=== PATIENT | female | born 1965 | race Caucasian/White ===

== ENCOUNTER → 2018-11-25 | Outpatient (CLI) | payer BC ==
[~2018-11-25] MED LIST: BUPR150ER PO; CYAN500 PO; DIPH50 PO; ERYT250; Estradiol1 MG PO; GLUCOSAMINE-CH1 EA18 PO; LEVSOD125 PO; LEVSOD137 PO; Melatonin5 M1 PO; Mirena1 EACH VG; Multiple Vitam1 EAC1 PO; NAPR220 PO; SERT100 PO; VITAMIN D32000 UNI1 PO; ZOLP5 PO
== END | disposition home or self-care (01) ==
LOC: LAB 16:00 → LAB SHORT 16:00
DX: N39.0 Urinary tract infection, site not specified (principal)
CPT/HCPCS: 87077; 87086; 87186

== ENCOUNTER 2018-11-26 12:52 | Emergency (ER) | payer BC ==
[~2018-11-26] VITALS: Ht 157.5 cm; Wt 81.2 kg
[2018-11-26 13:29] LABS: BASOPHILS ABSOLUTE AUTO 0.04 K/mm3 (0.00-0.23); BASOPHILS PERCENT AUTO 0 % (0-2); EOSINOPHILS ABSOLUTE AUTO 0.09 K/mm3 (0.00-0.68); EOSINOPHILS PERCENT AUTO 1 % (0-6); Hematocrit 35.1 % (33.0-51.0); Hemoglobin 11.7 g/dL (11.5-16.0); IMMATURE GRAN PERCENT AUTO 1 % (0-1); LYMPHOCYTES ABSOLUTE AUTO 1.01 K/mm3 (0.84-5.20); LYMPHOCYTES PERCENT AUTO 7 % (21-46); MONOCYTES ABSOLUTE AUTO 1.03 K/mm3 (0.16-1.47); MONOCYTES PERCENT AUTO 7 % (4-13); Mean Corpuscular HGB 28.6 pg (26.0-34.0); Mean Corpuscular HGB Conc 33.3 g/dL (31.5-36.5); Mean Corpuscular Volume 86 fL (80-100); Mean Platelet Volume 8.8 fL (9.1-12.4); NEUTROPHILS ABSOLUTE AUTO 12.22 K/mm3 (1.96-9.15); NEUTROPHILS PERCENT AUTO 84 % (41-73); Platelet Count 214 K/mm3 (150-400); RDW Standard Deviation 43.8 fL (35.1-46.3); Red Blood Cell Count 4.09 M/mm3 (3.80-5.20); White Blood Cell Count 14.49 K/mm3 (4.00-11.30)
[2018-11-26 13:30] LABS: Source, Urine Clean Catch
[2018-11-26 13:36] LABS: Bilirubin, Urine Neg (Neg); Blood, Urine 1+ (Neg); Color, Urine Yellow (P-Yellow); Glucose Qualitative, Urine Neg (Neg); Ketones, Urine Neg (Neg); Leukocyte Esterase, Urine 2+ (Neg); Nitrite, Urine Neg (Neg); Protein, Urine 1+ (Neg); Specific Gravity, Urine 1.005 (1.003-1.022); Urobilinogen, Urine NORM (Normal)
[2018-11-26 13:54] LABS: Appearance, Urine Hazy (Clear); Bacteria Few /hpf; Squamous Epithelial Cells Mod /hpf (Few)
[2018-11-26 14:10] LABS: Alanine Aminotransfer (ALT/SGP 35 U/L (12-78); Albumin, Blood 2.5 g/dL (3.4-5.0); Albumin/Globulin Ratio 0.6 (0.8-1.8); Alk Phos 170 U/L (50-136); Anion Gap 7 mmol/L (6-16); Aspartate Aminotrans (AST/SGOT 25 U/L (12-37); Bilirubin, Total 0.3 mg/dL (0.1-1.0); Blood Urea Nitrogen 14 mg/dL (8-24); CO2, Blood 24 mmol/L (21-32); Calcium, Blood 8.3 mg/dL (8.5-10.1); Chloride, Blood 102 mmol/L (98-108); Globulin, Blood 4.4 g/dL (2.2-4.0); Glomerular Filtration Rate >60 (60-); Glucose, Blood 117 mg/dL (70-99); Potassium, Blood 3.8 mmol/L (3.5-5.5); Sodium, Blood 133 mmol/L (136-145); Total Protein, Blood 6.9 g/dL (6.4-8.2)
== END 2018-11-26 15:28 | disposition home or self-care (01) ==
LOC: ER 12:52
PROVIDERS: Physician Assistant
DX: N39.0 Urinary tract infection, site not specified (principal); E03.9 Hypothyroidism, unspecified; F32.9 Major depressive disorder, single episode, unspecified; F41.9 Anxiety disorder, unspecified
CPT/HCPCS: 36415; 80053; 81001; 83690; 85025; 87086; 99283

== ENCOUNTER → 2019-12-06 | Outpatient (CLI) | payer BC, OTHER | END | disposition home or self-care (01) | LOC: LAB SHORT 07:40 → PLD 07:40 | DX: D48.5 Neoplasm of uncertain behavior of skin (principal) | CPT/HCPCS: 88304 ==

== ENCOUNTER 2021-10-02 10:05 | Day surgery (SDC) | payer BC ==
[~2021-10-02] VITALS: Ht 157.5 cm; Wt 91.3 kg
--- NOTE | 2021-10-02 10:40 | NUR ---
10/02/[address] ARCOS NOTIFIED OF PT DAILY NAPROXEN USE, OK TO PROCEED WITH PREOP AND PROCEDURE PER BOTH DAILY
== END 2021-10-02 12:29 | disposition home or self-care (01) ==
LOC: ORSCSDS 10:05
PROVIDERS: Obstetrics & Gynecology
PROC: 0UDB8ZX Extraction of Endometrium, Via Natural or Artificial Opening Endoscopic, Diagnostic (ICD-10-PCS; principal; 2021-10-02 11:15)
DX: N95.0 Postmenopausal bleeding (principal); R93.89 Abnormal findings on diagnostic imaging of other specified body structures; N85.00 Endometrial hyperplasia, unspecified; E03.9 Hypothyroidism, unspecified; F32.A Depression, unspecified; F41.9 Anxiety disorder, unspecified; Z79.899 Other long term (current) drug therapy; E66.9 Obesity, unspecified; Z68.38 Body mass index [BMI] 38.0-38.9, adult
CPT/HCPCS: 88305; J0690; J1100; J2250; J2405; J2704; J3010

== ENCOUNTER 2022-02-12 10:54 | Day surgery (SDC) | payer BC ==
[~2022-02-12] VITALS: Ht 157.5 cm; Wt 91.0 kg
[~2022-02-12 10:54] MED LIST changes: -LEVSOD125 PO; +LEVSOD75 PO
--- NOTE | 2022-02-12 11:50 | NUR ---
Ambulatory in Day Surgery History, Chart, Medications and Allergies reviewed before start of procedure.Patient confirms NPO status and agrees with scheduled surgery. Surgical site prepped with 2% Chlorhexidine cloth wipe. Lungs clear T/O to Auscultation. 2ND IV ACCESS ATTEMPTED X2 NO SUCCESS.
--- NOTE | 2022-02-12 11:52 | NUR ---
REPORT TO CRYSTAL GREENWOOD
--- NOTE | 2022-02-12 18:25 | NUR ---
SHIFT SUMMARY: NO ACUTE EVENTS. C/O 01/04 ABD PAIN, MEDICATED WITH TORADOL WITH SOME RELIEF. TOLERATING PO INTAKE, ATE 80% OF DINNER. CHRIS DRAINING ADEQUATE URINE. LAP INCISIONS X 4 APPROX WITH DERMABOND, NO DRAINAGE OR S/S OF INFECTION. ABD BINDER IN PLACE WELL SCD'S. EDUCATED ABOUT USING INCENTIVE SPIROMETER, GAVE ADEQUATE RETURN DEMONSTRATION.
[2022-02-13 04:17] LABS: BASOPHILS ABSOLUTE AUTO 0.02 K/mm3 (0.00-0.23); BASOPHILS PERCENT AUTO 0 % (0-2); EOSINOPHILS ABSOLUTE AUTO 0.01 K/mm3 (0.00-0.68); EOSINOPHILS PERCENT AUTO 0 % (0-6); Hematocrit 38.5 % (33.0-51.0); IMMATURE GRAN ABSOLUTE AUTO 0.03 K/mm3 (0.00-0.10); IMMATURE GRAN PERCENT AUTO 0 % (0-1); LYMPHOCYTES ABSOLUTE AUTO 1.45 K/mm3 (0.84-5.20); LYMPHOCYTES PERCENT AUTO 12 % (21-46); MONOCYTES ABSOLUTE AUTO 0.76 K/mm3 (0.16-1.47); MONOCYTES PERCENT AUTO 6 % (4-13); Mean Corpuscular HGB Conc 33.8 g/dL (31.5-36.5); Mean Corpuscular Volume 86 fL (80-100); NEUTROPHILS ABSOLUTE AUTO 9.86 K/mm3 (1.96-9.15); NEUTROPHILS PERCENT AUTO 81 % (41-73); Platelet Count 262 K/mm3 (150-400); RDW Coefficient Variation 14.1 % (11.7-14.2); RDW Standard Deviation 44.1 fL (35.1-46.3); Red Blood Cell Count 4.49 M/mm3 (3.80-5.20); White Blood Cell Count 12.13 K/mm3 (4.00-11.30)
[2022-02-13] MEDS ORDERED: SIME80CH PO (12:13)
[2022-02-13] MEDS ORDERED: Percocet 5-3251 EACH PO (12:13)
--- NOTE | 2022-02-13 13:06 | NUR ---
DISCHARGE SUMMARY PATIENT ALERT AND ORIENTED. DOT WILKS'Francesca THIS AM, VOIDING WELL. TOLERATING DIET AND LIQUIDS. PAIN CONTROLLED WITH PO PAIN MEDS. ABD LAP SITES C/D/I. SCANT SPOTTING TO PARVEEN PAD. AMBULATING IN ROOM. DISCHARGE ORDER OBTAINED. DISCHARGE EDUCATION GIVEN ON NEW MEDS, WOUND CARE, ACTIVITY, AND FOLLOW UP APPTS. PATIENT LEFT UNIT AT 1230 VIA WHEELCHAIR WITH SPOUSE FOR HOME.
== END 2022-02-13 13:03 | disposition home or self-care (01) ==
LOC: ORSCMMR 10:54 → ORD 12:30 → ORSCMMR 17:00 → SURS 17:00 → ORSCMMR 02-13 13:03
PROVIDERS: Obstetrics & Gynecology
DX: N95.0 Postmenopausal bleeding (principal); N94.6 Dysmenorrhea, unspecified; R10.2 Pelvic and perineal pain; N83.292 Other ovarian cyst, left side; N83.291 Other ovarian cyst, right side; N81.10 Cystocele, unspecified; E03.9 Hypothyroidism, unspecified; F41.8 Other specified anxiety disorders; E66.9 Obesity, unspecified; Z68.36 Body mass index [BMI] 36.0-36.9, adult; Z79.899 Other long term (current) drug therapy
CPT/HCPCS: 58571; S2900; 36415; 85025; 88307; 94760; A9270; J0690; J1100; J1885; J2250; J2270; J2405; J2704; J3010; J7120

== ENCOUNTER 2023-08-09 10:06 | Day surgery (SDC) | payer BC ==
[2023-08-09] VITALS (14 sets, daily range): BP systolic 83–126; BP diastolic 48–85
[~2023-08-09] VITALS: Ht 154.9 cm; Wt 87.7 kg
[~2023-08-09 10:06] MED LIST changes: +ACET500 PO; +Aspir 8181 MG PO; -BUPR150ER PO; +BUPROPION XL450 MG PO; +BUSPIRONE HCL30 M1 PO; +ESTRADIOL TOP; +ESZO3 PO; +IBUP400 PO; +OXYC5 PO; +Percocet 5-3251 EACH PO; +SIME80CH PO
[2023-08-09] MEDS ORDERED: Acetaminophen 500 MG Tab PO SCH ×2 (10:25→16:00)
[2023-08-09] MEDS ORDERED: Lactated Ringer's 1,000 ML IV SCH ×2 (10:25→11:15)
[2023-08-09] MEDS ORDERED: Ropivacaine 0.5% HCl/Pf 67.75 MG,EPINEPHrine HCL 0.25 MG,Ketorolac Tromethamine 15 MG,C... INFIL SCH (10:25)
[2023-08-09] MEDS ORDERED: CeFAZolin Sodium 2,000 MG in NS 50 ML IV SCH ×2 (10:25→21:00)
[2023-08-09] MEDS ORDERED: OxyCODONE HCL 10 MG TABCR PO SCH (10:25)
[2023-08-09] MEDS ORDERED: Chlorhexidine Mouth Care 15 ML UDC MT SCH (10:25)
[2023-08-09] MEDS ORDERED: CeFAZolin Sodium 2,000 MG VIAL ONE (10:47)
[2023-08-09] MEDS ORDERED: Promethazine HCl 25 MG Tab PO PRN (11:10)
[2023-08-09] MEDS ORDERED: OxyCODONE HCL 5 MG TAB PO PRN ×2 (11:10→11:15)
[2023-08-09] MEDS ORDERED: DiphenhydrAMINE HCL 25 MG Cap PO PRN (11:10)
[2023-08-09] MEDS ORDERED: Bisacodyl 10 MG Supp PR PRN (11:10)
[2023-08-09] MEDS ORDERED: Magnesium Hydroxide Conc 10 ML UDC PO PRN (11:15)
[2023-08-09] MEDS ORDERED: Ondansetron HCl 2 MG / ML 2ML Vial IV PRN ×2 (11:15→12:05)
[2023-08-09] MEDS ORDERED: Metoclopramide HCl 5MG / ML 2ML Vial IV PRN (11:15)
[2023-08-09] MEDS ORDERED: FLU VACC QS2023-24(6MOS UP)/PF 60 MCG/0.5 ML SYRINGE IM SCH (11:15)
[2023-08-09] MEDS ORDERED: HYDROmorphone HCl/Pf 1MG SYR IV PRN ×2 (11:15→12:05)
[2023-08-09] MEDS ORDERED: Lidocaine HCl 1% 5 ML SYR INJ ONE (12:00)
[2023-08-09] MEDS ORDERED: Ketorolac Tromethamine 15mg Vial IV SCH (12:00)
[2023-08-09] MEDS ORDERED: propofoL 40 ML IV ONE (12:03)
[2023-08-09] MEDS ORDERED: FentaNYL Citrate 50 MCG/ML 2 ML Injection ONE (12:03)
[2023-08-09] MEDS ORDERED: Midazolam HCl 1MG / ML 2ML Vial IV PRN (12:05)
[2023-08-09] MEDS ORDERED: FentaNYL Citrate 50 MCG/ML 2 ML Injection IV PRN ×3 (12:05→12:10)
--- NOTE | 2023-08-09 12:43 | NUR ---
PATIENT PREFERENCE IS TO LEAVE CONTACTS IN. DR. MORTENSEN AWARE AND AGREES TO THIS PLAN.
[2023-08-09] MEDS ORDERED: propofoL 80 ML IV ONE (13:24)
[2023-08-09] MEDS ORDERED: Phenylephrine HCl 100 MCG/ML-NS 10MLSYR (1MG/10ML) ONE (13:29)
--- NOTE | 2023-08-09 13:58 | NUR ---
08/09/23 1358 Jenni Mcadams SPINAL NERVE BLOCK COMPLETED UPON ENTRY TO OR. PT POSITIONED HERSELF ON HER RIGHT SIDE FOR SPINAL. PT TOLERATED WELL.
--- NOTE | 2023-08-09 18:45 | NUR ---
SHIFT SUMMARY S/P R TKA, AQUACEL X2 CDI, POLAR STEVE ON. A&OX4, VSS/RA, DEBBY PO, VOIDING, AMB SBA FWW/GB, PAIN MANAGED, IV 70 MLS/HR & ABX PER EMAR. WILL REPORT TO ONCOMING NOC RN.
[2023-08-09] MEDS ORDERED: BusPIRone HCl 10 MG Tab PO SCH (21:00)
[2023-08-09] MEDS ORDERED: Docusate Sodium 100 MG Cap PO SCH (21:00)
[2023-08-10 02:47] VITALS: BP 122/65
[2023-08-10] MEDS ORDERED: Levothyroxine Sodium 0.137 MG Tab PO SCH (06:00)
[2023-08-10 06:21] LABS: BASOPHILS ABSOLUTE AUTO 0.02 K/mm3 (0.00-0.23); BASOPHILS PERCENT AUTO 0 % (0-2); EOSINOPHILS PERCENT AUTO 4 % (0-6); Hematocrit 35.6 % (33.0-51.0); Hemoglobin 11.7 g/dL (11.5-16.0); IMMATURE GRAN ABSOLUTE AUTO 0.02 K/mm3 (0.00-0.10); IMMATURE GRAN PERCENT AUTO 0 % (0-1); LYMPHOCYTES ABSOLUTE AUTO 2.12 K/mm3 (0.84-5.20); LYMPHOCYTES PERCENT AUTO 26 % (21-46); MONOCYTES ABSOLUTE AUTO 0.64 K/mm3 (0.16-1.47); MONOCYTES PERCENT AUTO 8 % (4-13); Mean Corpuscular HGB 28.3 pg (26.0-34.0); Mean Corpuscular HGB Conc 32.9 g/dL (31.5-36.5); Mean Corpuscular Volume 86 fL (80-100); NEUTROPHILS ABSOLUTE AUTO 5.03 K/mm3 (1.96-9.15); NEUTROPHILS PERCENT AUTO 62 % (41-73); Platelet Count 233 K/mm3 (150-400); RDW Coefficient Variation 14.8 % (11.7-14.2); Red Blood Cell Count 4.13 M/mm3 (3.80-5.20); White Blood Cell Count 8.13 K/mm3 (4.00-11.30)
[2023-08-10 06:55] LABS: Bun/Creatinine Ratio 21.8 (12.0-20.0); Calcium, Blood 8.2 mg/dL (8.5-10.1); Creatinine, Blood 0.74 mg/dL (0.40-1.00); Magnesium, Blood 2.1 mg/dL (1.6-2.4); Potassium, Blood 3.8 mmol/L (3.5-5.5)
[2023-08-10 07:23] VITALS: BP 113/78
--- NOTE | 2023-08-10 07:26 | NUR ---
POD 1 S/P R TKA. PT VSS T/O NIGHT. DRESSING CDI. PAIN MGD W/10 MG OXYCODONE +SCHEDULED MEDS W/REP RELIEF. PT REP SENSATION AT BASELINE, PEDAL PULSES AND CAP REFILL WNL. PT DEBYB REG PO, DENIED N/V, IS VOIDING URINE W/O DIFFICULTY. PT UP OOB W/FWW+SBA, DEBBY WELL. PLAN TO MOBILIZE W/PT AND DC HOME WHEN CLEARED.
[2023-08-10] MEDS ORDERED: Cholecalciferol 1000 Unit Tablet (=25MCG) PO SCH (09:00)
[2023-08-10] MEDS ORDERED: Aspirin 81 MG Chew PO SCH (09:00)
[2023-08-10] MEDS ORDERED: buPROPion HCL 150 MG TAB.SR.12H PO SCH (09:00)
[2023-08-10] MEDS ORDERED: BusPIRone HCl 10 MG Tab PO SCH (09:00)
[2023-08-10] MEDS ORDERED: Aspir 8181 MG PO (09:25)
[2023-08-10] MEDS ORDERED: DOCU100 PO (09:29)
[2023-08-10] MEDS ORDERED: OXYC5 PO (09:29)
--- NOTE | 2023-08-10 10:30 | NUR ---
DISCHARGE PT A&OX4, VSS/RA, DEBBY PO, VOIDING, AMB FWW/GB, DRESSED SELF, UP TO CHAIR, COMPLETED PHYSICAL THERAPY, PAIN MANAGED, IV DC'D. DC INS PROVIDED: ASA BID, PAIN MANAGEMT, DRESSING CHANGES, ICE/ELEVATE/SHORT FREQ AMB, OUTPT PHYSICAL THERAPY, FWW AT ALL TIMES, WHEN TO CALL SURGEON, FU APPT 2 WKS, OK TO SHOWER. PT REP UNDERSTANDING THOSE INSTRUCTIONS. LEFT FLOOR VIA WC WITH ALGEBRAIST TO GO HOME WITH WITH ALL PERSONAL POSSESSIONS INCLUDING DC PACKET, AQUACEL DRESSINGS, REP SCRIPTS READY FOR [facility] AT [facility] (OXY).
== END 2023-08-10 10:35 | disposition home or self-care (01) ==
LOC: ORSCMMR 10:06 → ORD 13:00 → ORSCMMR 13:15 → SURS 15:41 → ORSCMMR 08-10 10:35
PROVIDERS: Orthopaedic Surgery
PROC: 0SRC0JA Replacement of Right Knee Joint with Synthetic Substitute, Uncemented, Open Approach (ICD-10-PCS; principal; 2023-08-09 12:30)
DX: M17.11 Unilateral primary osteoarthritis, right knee (principal); Z96.651 Presence of right artificial knee joint; F41.9 Anxiety disorder, unspecified; F32.A Depression, unspecified; E03.9 Hypothyroidism, unspecified; Z79.899 Other long term (current) drug therapy; E66.9 Obesity, unspecified; Z68.35 Body mass index [BMI] 35.0-35.9, adult
CPT/HCPCS: 36415; 73560-RT; 80048; 83735; 85025; 94760; 97110; 97116; 97162; 97530; A9270; C1713; C1776; J0171; J0690; J0735; J1885; J2371; J2704; J2795; J3010; J7120

== ENCOUNTER 2024-03-28 10:57 | Day surgery (SDC) | payer BC ==
[~2024-03-28] VITALS: Ht 154.9 cm; Wt 88.4 kg
[~2024-03-28 10:57] MED LIST changes: +Balanced Salt Epinephrine Irrigation Solution 500 mL IR SCH; +DOCU100 PO; +Lidocaine HCl/Pf 1% 5 ML VIAL XX SCH; +Moxifloxacin HCL 0.5 MG/0.1 ML 0.4MLSYR LEFTEYE SCH; +NS 500 ML IV ONE; +PHENYLEPHRINE\\TROPICAMIDE\\TETRACAINE OPHTHALMIC DILATING SOLN LEFTEYE PRN; +Povidone-Iodine 450 DROP/30 ML Solution LEFTEYE SCH; +Povidone-Iodine 450 DROP/30 ML Solution ONE; +Tetracaine HCl/Pf 0.5% Opth Soln 4 ml ONE
[2024-03-28] MEDS ORDERED: TOPI100 PO (11:12)
[2024-03-28] MEDS ORDERED: Midazolam HCl 1MG / ML 2ML Vial ONE (11:31)
[2024-03-28 11:59] VITALS: BP 125/77
[2024-03-28] MEDS ORDERED: NS 500 ML IV ONE (12:05)
--- NOTE | 2024-03-28 12:14 | NUR ---
03/28/24 1214 Ana Peters PT HAS HEADACHE SHE FEELS FROM NO CAFFEINE
== END 2024-03-28 12:14 | disposition home or self-care (01) ==
LOC: ORSCSDS 10:57
PROVIDERS: Student in an Organized Health Care Education/Training Program
PROC: 08RK3JZ Replacement of Left Lens with Synthetic Substitute, Percutaneous Approach (ICD-10-PCS; principal; 2024-03-28 12:00)
DX: H25.812 Combined forms of age-related cataract, left eye (principal); Z96.1 Presence of intraocular lens; E03.9 Hypothyroidism, unspecified; F41.9 Anxiety disorder, unspecified; F32.A Depression, unspecified; Z79.899 Other long term (current) drug therapy
CPT/HCPCS: J2250; J7040; V2632